=== PATIENT | female | born 1990 | race American Indian/Alaskan Native ===

== ENCOUNTER 2021-09-19 17:56 | Emergency (ER) | payer OTHER, MEDICAID, SELFPAY ==
[2021-09-19 18:08] VITALS: BP 150/90; PULSE 71; RESP 16; TEMP 36.4; O2SAT 97; BMI 35.2
--- NOTE | 2021-09-19 19:19 | ED_ITS ---
HPI - Headache <Nupur Levin PA-C - Last Filed: 09/19/21 20:35> General Chief Complaint: Headache Stated Complaint: Migraine/Vomiting Time Seen by Provider: 09/19/21 19:06 History of Present Illness HPI Narrative: 31-year-old female with past medical history migraines presents to the ED with 1 day of migraine. Patient states the headache started upon awakening, is pulsatile in nature and sharp. Patient also complains of nausea and vomiting, photophobia. Patient describes the headache that started of mild and worsened over time today. Patient denies visual disturbances, fever, chills, chest pain, shortness of breath, abdominal pain, dysuria, gait problems, lightheadedness, dizziness, syncope. Patient states she did not take any medications for her he adache today. Patient is not on a migraine regimen despite having migraine several days a month. Patient states she has been having trouble establishing with a PCP with their frequent moves, they moved recently to [place]. Related Data Allergies Allergy/AdvReac Type Severity Reaction Status Date / Time No Known Drug Allergies Allergy Verified 09/19/21 19:28 Review of Systems <Nupur Levin PA-C - Last Filed: 09/19/21 20:35> Review of Systems ROS Unobtainable: All systems reviewed & are unremarkable except as noted in HPI and below Constitutional Constitutional: Denies chills, Denies fatigue, Denies fever(s), Denies frequent falls, Reports headache(s), Denies lethargy and Denies weakness Eyes Eyes: Denies change in vision, Denies eye discharge, Denies irritation, Denies loss of vision and Reports photophobia ENT Ears, Nose, Mouth, and Throat: Denies change in voice, Denies dizziness, Reports headache(s), Denies neck pain, Denies sore throat and Denies throat swelling Cardiovascular Cardiovascular: Denies chest pain, Denies irregular heart rhythm, Denies lightheadedness, Denies palpitations, Denies dyspnea, Denies dyspnea on exertion and Denies orthopnea Respiratory Respiratory: Denies cough, Denies dyspnea, Denies dyspnea on exertion and Denies wheezing Gastrointestinal Gastrointestinal: Denies abdominal pain, Denies change in bowel habits, Denies diarrhea, Reports nausea and Reports vomiting Genitourinary Genitourinary: Denies hematuria, Denies flank pain, Denies urinary incontinence and Denies urinary urgency Musculoskeletal Musculoskeletal: Denies back pain, Denies muscle weakness, Denies neck pain, Den ies numbness and Denies tingling Integumentary/Breasts Skin/Breast: Denies pruritus, Denies erythema, Denies rash and Denies wounds Neurologic Neurologic: Denies behavioral changes, Denies confusion, Denies dizziness, Denies frequent falls, Reports headache(s), Denies loss of vision, Denies numbness, Denies tingling and Denies weakness Psychiatric Psychiatric: Denies anxiety, Denies behavioral changes, Denies confusion, Denies depression, Denies homicidal ideation and Denies suicidal ideation Endocrine Endocrine: Denies fatigue, Denies flushing and Denies palpitations Hematologic/Lymphatic Hematologic/Lymphatic: Denies easy bruising Allergic/Immunologic Allergic/Immunologic: Denies urticaria, Denies throat swelling and Denies wheezing Patient History <Nupur Levin PA-C - Last Filed: 09/19/21 20:35> Social History Smoking Status: Never smoker Smoking Status: Never smoker alcohol intake frequency: holidays/special occasions only Substance Use Type: does not use Exam <Nupur Levin PA-C - Last Filed: 09/19/21 20:35> Narrative Exam Narrative: Const General:?cooperative, healthy appearing and comfortable [facility] Head:?normal to inspection Ears:?hearing grossly normal bilaterally Nose:?external nose normal Face and sinus:?normal facial exam and sinuses nontender Mouth:?oral mucosae normal Throat:?posterior oropharynx normal Eyes General:?appearance normal, both eyes and all related structures Neck Neck:?normal visual inspection and no lymphadenopathy noted Resp Effort & Inspection:?normal respiratory effort Auscultation:?clear to auscultation bilaterally Cardio Rate:?regular rate Rhythm:?regular rhythm Neuro General:?patient alert, patient awake and patient oriented x3; PERRLA, CN 1 through 12 intact bilaterally. Gait normal. Negative pronator drift. Negative [id number]. Negative rapid alternating movements. Patient is neurologically intact. Initial Vital Signs Initial Vital Signs: Vital Signs Temperature 97.6 F 09/19/21 18:08 Pulse Rate 71 09/19/21 18:08 Respiratory Rate 16 09/19/21 18:08 Blood Pressure 150/90 H 09/19/21 18:08 Pulse Oximetry 97 09/19/21 18:08 <Gracia Horan MD - Last Filed: 09/20/21 06:26> Initial Vital Signs Initial Vital Signs: Vital Signs Temperature 97.6 F 09/19/21 18:08 Pulse Rate 71 09/19/21 18:08 Respiratory Rate 16 09/19/21 18:08 Blood Pressure 150/90 H 09/19/21 18:08 Pulse Oximetry 97 09/19/21 18:08 Course <Nupur Levin PA-C - Last Filed: 09/19/21 20:35> Orders Ordered: Discontinued Medications Acetaminophen (Acetaminophen 325 Mg Tablet) 975 mg PO NOW ONE Stop: 09/19/21 19:16 Last Admin: 09/19/21 19:39 Dose: 975 mg Documented by: LAZARO Dexamethasone (Dexamethasone 10 Mg/Ml Vial) 10 mg IV NOW ONE Stop: 09/19/21 19:19 Last Admin: 09/19/21 19:30 Dose: 10 mg Documented by: BERNARD Diphenhydramine HCl (Diphenhydramine 50 Mg/Ml Vial) 50 mg IV NOW ONE Stop: 09/19/21 19:16 Last Admin: 09/19/21 19:30 Dose: 50 mg Documented by: BERNARD Sodium Chloride (Normal Saline 0.9%) 1,000 mls @ 1,000 mls/hr IV BOLUS ONE Stop: 09/19/21 20:13 Last Infusion: 09/19/21 21:16 Dose: 0 mls/hr Documented by: Admin: 09/19/21 19:29 Dose: 1,000 mls/hr Documented by: BERNARD Ketorolac Tromethamine (Ketorolac 30 Mg/Ml Vial) 15 mg IV NOW ONE Stop: 09/19/21 19:15 Last Admin: 09/19/21 19:29 Dose: 15 mg Documented by: BERNARD Metoclopramide HCl (Metoclopramide 10 Mg/2 Ml Inj) 10 mg IV NOW ONE Stop: 09/19/21 19:15 Last Admin: 09/19/21 19:30 Dose: 10 mg Documented by: BERNARD Ondansetron HCl (Ondansetron 4 Mg/2 Ml Inj) 4 mg IV NOW ONE Stop: 09/19/21 19:35 Last Admin: 09/19/21 19:40 Dose: 4 mg Documented by: LAZARO Vital Signs Vital signs: Vital Signs - 8 hr 09/19/21 18:08 Temperature 97.6 F Pulse Rate 71 Respiratory Rate 16 Blood Pressure 150/90 H Pulse Oximetry 97 <Gracia Horan MD - Last Filed: 09/20/21 06:26> Orders Ordered: Discontinued Medications Acetaminophen (Acetaminophen 325 Mg Tablet) 975 mg PO NOW ONE Stop: 09/19/21 19:16 Last Admin: 09/19/21 19:39 Dose: 975 mg Documented by: LAZARO Dexamethasone (Dexamethasone 10 Mg/Ml Vial) 10 mg IV NOW ONE Stop: 09/19/21 19:19 Last Admin: 09/19/21 19:30 Dose: 10 mg Documented by: BERNARD Diphenhydramine HCl (Diphenhydramine 50 Mg/Ml Vial) 50 mg IV NOW ONE Stop: 09/19/21 19:16 Last Admin: 09/19/21 19:30 Dose: 50 mg Documented by: BERNARD Sodium Chloride (Normal Saline 0.9%) 1,000 mls @ 1,000 mls/hr IV BOLUS ONE Stop: 09/19/21 20:13 Last Infusion: 09/19/21 21:16 Dose: 0 mls/hr Documented by: Admin: 09/19/21 19:29 Dose: 1,000 mls/hr Documented by: BERNARD Ketorolac Tromethamine (Ketorolac 30 Mg/Ml Vial) 15 mg IV NOW ONE Stop: 09/19/21 19:15 Last Admin: 09/19/21 19:29 Dose: 15 mg Documented by: BERNARD Metoclopramide HCl (Metoclopramide 10 Mg/2 Ml Inj) 10 mg IV NOW ONE Stop: 09/19/21 19:15 Last Admin: 09/19/21 19:30 Dose: 10 mg Documented by: BERNARD Ondansetron HCl (Ondansetron 4 Mg/2 Ml Inj) 4 mg IV NOW ONE Stop: 09/19/21 19:35 Last Admin: 09/19/21 19:40 Dose: 4 mg Documented by: LAZARO Vital Signs Vital signs: Vital Signs - 8 hr 09/19/21 18:08 Temperature 97.6 F Pulse Rate 71 Respiratory Rate 16 Blood Pressure 150/90 H Pulse Oximetry 97 MDM - Headache <Nupur Levin PA-C - Last Filed: 09/19/21 20:35> Lab Data Lab results narrative: Labs within normal limits Result diagrams: 09/19/21 18:49 09/19/21 18:49 Labs: Lab Results 09/19/21 09/19/21 Range/Units 18:49 18:49 WBC 12.5 H (4.5-11.0) X10^3/uL RBC 4.67 (4.0-5.2) X10^6/uL Hgb 11.4 L (12.0-16.0) g/dL Hct 34.8 L (36-46) % MCV 74.6 L (80-100) fL MCH 24.3 L (26-34) PG MCHC 32.6 (30-36) % RDW 15.5 H (11.6-14.8) % Plt Count 255 (150-400) X10^3/uL Neut % (Auto) 88.4 H (50-75) % Lymph % (Auto) 7.0 L (25-40) % [place] % (Auto) 3.8 (3-14) % Eos % (Auto) 0.6 L (2-4) % Baso % (Auto) 0.2 (0-2) % Neut # (Auto) 08904 H (6212-7984) /uL Lymph # (Auto) 900 L (7934-4506) /uL [place] # (Auto) 500 (0-900) /uL Eos # (Auto) 100 (0-450) /uL Baso # (Auto) 0 (0-100) /uL Sodium 139 (137-145) mmol/L Potassium 4.1 (3.4-5.1) mmol/L Chloride 105 (98-107) mmol/L Carbon Dioxide 21 L (22-32) mmol/L BUN 10 (7-17) mg/dL Creatinine 0.56 (0.52-1.04) mg/dL Estimated GFR > 60 (>60) mL/min BUN/Creatinine Ratio 17.9 (6-22) Glucose 108 H (70-100) mg/dL Calcium 8.9 (8.4-10.2) mg/dL MDM Narrative Medical decision making narrative: 31-year-old female with past medical history migraines presents to the ED with 1 day of migraine. Given no red flag symptoms, symptoms likely due to a primary headache. Will treat with Toradol, Tylenol, Benadryl, IV fluids, Reglan, dexamethasone. Will re-evaluate. Patient has 10/10 pain came down to 1/10 pain with the medications. Recommend Tylenol, ibuprofen at home for headache. ED return precautions discussed with patient. Patient verbalized understanding. <Gracia Horan MD - Last Filed: 09/20/21 06:26> Lab Data Labs: Lab Results 09/19/21 09/19/21 Range/Units 18:49 18:49 WBC 12.5 H (4.5-11.0) X10^3/uL RBC 4.67 (4.0-5.2) X10^6/uL Hgb 11.4 L (12.0-16.0) g/dL Hct 34.8 L (36-46) % MCV 74.6 L (80-100) fL MCH 24.3 L (26-34) PG MCHC 32.6 (30-36) % RDW 15.5 H (11.6-14.8) % Plt Count 255 (150-400) X10^3/uL Neut % (Auto) 88.4 H (50-75) % Lymph % (Auto) 7.0 L (25-40) % [place] % (Auto) 3.8 (3-14) % Eos % (Auto) 0.6 L (2-4) % Baso % (Auto) 0.2 (0-2) % Neut # (Auto) 57171 H (2607-9677) /uL Lymph # (Auto) 900 L (4507-5079) /uL [place] # (Auto) 500 (0-900) /uL Eos # (Auto) 100 (0-450) /uL Baso # (Auto) 0 (0-100) /uL Sodium 139 (137-145) mmol/L Potassium 4.1 (3.4-5.1) mmol/L Chloride 105 (98-107) mmol/L Carbon Dioxide 21 L (22-32) mmol/L BUN 10 (7-17) mg/dL Creatinine 0.56 (0.52-1.04) mg/dL Estimated GFR > 60 (>60) mL/min BUN/Creatinine Ratio 17.9 (6-22) Glucose 108 H (70-100) mg/dL Calcium 8.9 (8.4-10.2) mg/dL Discharge Plan Departure Patient Disposition: Home Clinical Impression: Headache Instructions: DI for Headache Activity Restrictions/Additional Instructions: You were evaluated in the ED today for a headache. Your symptoms responded well to Tylenol, Toradol, Benadryl, Reglan, dexamethasone, IV fluids. You may continue to take Tylenol and ibuprofen at home for your headache. Please follow-up with the PCP for further evaluation and treatment for your migraines. Return to the ED if your headache returns and is unresponsive to ibuprofen, Tylenol, you have uncontrollable nausea, vomiting. <Gracia Horan MD - Last Filed: 09/20/21 06:26> Cosign ED Attending Coselvaature Attestation: I was immediately available in the department for consultation throughout this patient's visit. I agree with documentation as above. Gracia Horan MD
[2021-09-19 19:22] LABS: Add Manual Diff / Slide Review NO; Basophils Absolute Auto 0 /uL (0-100); Basophils Percent Auto 0.2 % (0-2); Eosinophils Absolute Auto 100 /uL (0-450); Eosinophils Percent Auto 0.6 % (2-4); Hematocrit 34.8 % (36-46); Hemoglobin 11.4 g/dL (12.0-16.0); Lymphocytes Absolute Auto 900 /uL (1100-4500); Mean Corpuscular HGB Conc 32.6 % (30-36); Mean Corpuscular Hemoglobin 24.3 PG (26-34); Mean Corpuscular Volume 74.6 fL (80-100); Monocytes Absolute Auto 500 /uL (0-900); Monocytes Percent Auto 3.8 % (3-14); Neutrophils Absolute Auto 11100 /uL (1500-7000); Neutrophils Percent Auto 88.4 % (50-75); Platelet Count 255 X10^3/uL (150-400); Red Blood Cell Count 4.67 X10^6/uL (4.0-5.2); Red Cell Distribution Width 15.5 % (11.6-14.8); White Blood Cell Count 12.5 X10^3/uL (4.5-11.0)
[2021-09-19 19:28] LABS: BUN Creatinine Ratio 17.9 (6-22); Blood Urea Nitrogen 10 mg/dL (7-17); Calcium 8.9 mg/dL (8.4-10.2); Carbon Dioxide 21 mmol/L (22-32); Chloride 105 mmol/L (98-107); Estimated Glomerular Filt Rate > 60 mL/min (>60); Glucose 108 mg/dL (70-100); HEMOLYSIS < 15 (0-50); Potassium 4.1 mmol/L (3.4-5.1); Sodium 139 mmol/L (137-145)
[2021-09-19] MEDS: KETOROLAC 30 MG/ML VIAL 15 MG IV (19:29)
[2021-09-19] MEDS: SODIUM CHLORIDE 0.9% 1,000 ML 1000 ML IV (19:29)
[2021-09-19] MEDS: diphenhydrAMINE 50 MG/ML VIAL IV (19:30)
[2021-09-19] MEDS: METOCLOPRAMIDE 10 MG/2 ML INJ IV (19:30)
[2021-09-19] MEDS: DEXAMETHASONE 10 MG/ML VIAL IV (19:30)
[2021-09-19] MEDS: ACETAMINOPHEN 325 MG TABLET 975 MG PO (19:39)
[2021-09-19] MEDS: ONDANSETRON 4 MG/2 ML INJ IV (19:40)
[2021-09-19 20:33] VITALS: BP 117/67; PULSE 60; RESP 18; O2SAT 100
== END 2021-09-19 21:17 | disposition home or self-care (01) ==
PROVIDERS: Emergency Provider Student in an Organized Health Care Education/Training Program
DX: R51.9 Headache, unspecified (principal); R11.2 Nausea with vomiting, unspecified
CPT/HCPCS: 36415; 80048; 85025; 96361; 96374; 96375; 99284; J1100; J1200; J1885; J2405; J2765

== ENCOUNTER → 2022-08-09 16:15 | Outpatient (CLI) | payer OTHER, MEDICAID, SELFPAY ==
[2022-08-09 16:50] LABS: Add Manual Diff / Slide Review NO; Basophils Absolute Auto 0 /uL (0-100); Basophils Percent Auto 0.2 % (0-2); Eosinophils Absolute Auto 100 /uL (0-450); Eosinophils Percent Auto 0.5 % (2-4); Hematocrit 34.6 % (36-46); Hemoglobin 11.5 g/dL (12.0-16.0); Lymphocytes Absolute Auto 500 /uL (1100-4500); Mean Corpuscular HGB Conc 33.1 % (30-36); Mean Corpuscular Hemoglobin 25.3 PG (26-34); Mean Corpuscular Volume 76.4 fL (80-100); Monocytes Absolute Auto 600 /uL (0-900); Monocytes Percent Auto 6.1 % (3-14); Neutrophils Absolute Auto 9300 /uL (1500-7000); Neutrophils Percent Auto 88.2 % (50-75); Platelet Count 296 X10^3/uL (150-400); Red Blood Cell Count 4.53 X10^6/uL (4.0-5.2); Red Cell Distribution Width 15.2 % (11.6-14.8); White Blood Cell Count 10.6 X10^3/uL (4.5-11.0)
[2022-08-09 17:28] LABS: Alanine Aminotransferase 26 IU/L (<35); Albumin 4.3 g/dL (3.5-5.0); Albumin Globulin Ratio 1.4 (1.0-2.8); Alkaline Phosphatase 75 U/L (38-126); Aspartate Aminotransferase 19 IU/L (14-36); BUN Creatinine Ratio 16.7 (6-22); Bilirubin Total 0.5 mg/dL (0.2-1.3); Blood Urea Nitrogen 10 mg/dL (7-17); Calcium 9.1 mg/dL (8.4-10.2); Carbon Dioxide 24 mmol/L (22-32); Chloride 104 mmol/L (98-107); Cholesterol 142 mg/dL (140-199); Estimated Glomerular Filt Rate > 60 mL/min (>60); Globulin 3.1 g/dL (1.7-4.1); Glucose 95 mg/dL (70-100); HDL Cholesterol 52 mg/dL (40-60); HEMOLYSIS < 15 (0-50); LDL Cholesterol Calculated 68 mg/dL (<100); Sodium 137 mmol/L (137-145); Total Protein 7.4 g/dL (6.3-8.2); Triglycerides 111 mg/dL (35-150)
[2022-08-09 17:59] LABS: TSH w/ Reflex to FT4 1.05 uIU/mL (0.47-4.68)
[2022-08-11 06:01] LABS: x Labcorp Estim. Avg Glu (eAG) 114 mg/dL (.); x Labcorp Hemoglobin A1c 5.6 % (4.8-5.6)
== END ==
PROVIDERS: PCP Family Medicine; Referring Provider Family Medicine; Visit Provider Family Medicine
DX: F32.A Depression, unspecified (principal); G44.209 Tension-type headache, unspecified, not intractable; G43.909 Migraine, unspecified, not intractable, without status migrainosus; N92.6 Irregular menstruation, unspecified; R55 Syncope and collapse
CPT/HCPCS: 36415; 80053; 80061; 83036; 84443; 85025

== ENCOUNTER → 2022-09-06 10:39 | Outpatient (CLI) | payer OTHER, MEDICAID, SELFPAY ==
[2022-09-06 11:35] LABS: HEMOLYSIS < 15 (0-50); Iron 34 ug/dL (37-170)
[2022-09-06 11:46] LABS: Percent Iron Saturation 9 % (15-50); Total Iron Binding Capacity 392 ug/dL (265-497); Transferrin 289 mg/dL (206-381)
[2022-09-06 12:10] LABS: Ferritin 6 ng/mL (6-137)
[2022-09-11 13:09] LABS: Fecal Immunochemical Test Negative (Negative)
== END ==
PROVIDERS: PCP Family Medicine; Referring Provider Family Medicine; Visit Provider Family Medicine
DX: D50.9 Iron deficiency anemia, unspecified (principal); N92.1 Excessive and frequent menstruation with irregular cycle
CPT/HCPCS: 36415; 82274; 82728; 83540; 83550

== ENCOUNTER → 2022-09-19 15:56 | Outpatient (CLI) | payer OTHER, MEDICAID, SELFPAY ==
--- NOTE | 2022-09-19 15:57 | DI.US.S_ITS ---
PROCEDURE: US PELVIC COMPLETE INDICATIONS: PAINFUL, HEAVY, IRREGULAR MENSTRUATION TECHNIQUE: Real-time scanning was performed of the pelvic organs, with image documentation. Additional endovaginal scanning was necessary due to incomplete visualization of the adnexal and endometrial structures by transabdominal scanning. COMPARISON: None. FINDINGS: Uterus: Uterus is anteverted and normal in size at 9.2 x 5.7 x 4.9 cm. The myometrium is heterogeneous but without a discrete mass. The endometrium measures 10 mm combined thickness. Normal vascularity in the uterus and endometrium. Ovaries: The right ovary measures 4.2 x 2.2 x 2.6 cm, with a calculated ovarian volume of 12.4 cc. The left ovary measures 3.5 x 2.5 x 2.3 cm, with a calculated ovarian volume of 10.8 cc. The ovaries have a normal sonographic appearance. There are several follicles in each ovary and a few follicles in the right ovary contained daughter cysts. There is a dominant right ovarian follicle. A few daughter cysts and numerous follicles are present on the left ovary. No adnexal masses are seen. Other: No pathologic free abdominal or pelvic fluid. IMPRESSION: 1. Heterogeneous uterus raising the possibility of adenomyosis. Further evaluation with pelvic MRI may be diagnostic. 2. Borderline enlarged ovaries with numerous follicles. This can be physiologic, however in the appropriate clinical setting, polycystic ovarian syndrome can have this appearance. Correlate with hyperandrogenism. We strive to produce accurate, complete, and clear reports of imaging services. To assist us in improving patient care, this report was composed using standard report templates and voice recognition software. Therefore, it may contain abnormal punctuation, insertions and/or omissions. Occasional wrong-word or sound-alike substitutions may occur. Though we review the report and make efforts to correct it, we do recommend that the report be read carefully in proper context to recognize any text inaccuracies. Dictated by: Evelia Batres M.D. on 09/19/2022 at 16:55 Approved by: Evelia Batres M.D. on 09/19/2022 at 17:00
== END ==
PROVIDERS: PCP Family Medicine; Referring Provider Family Medicine; Visit Provider Family Medicine
DX: N92.0 Excessive and frequent menstruation with regular cycle (principal); N92.6 Irregular menstruation, unspecified; Q50.39 Other congenital malformation of ovary
CPT/HCPCS: 76830; 76856

== ENCOUNTER 2022-10-08 08:22 | Emergency (ER) | payer OTHER, MEDICAID, SELFPAY ==
--- NOTE | 2022-10-08 08:27 | ED.PREGNANCY ---
HPI - General Chief complaint: Vaginal Bleeding Stated complaint: vaginal bleeding 5wks Time Seen by Provider: 10/08/22 08:23 Source: patient, RN notes reviewed and old records reviewed Mode of arrival: Ambulatory Limitations: no limitations History of Present Illness HPI Narrative: This is a 32-year-old with history of PCOS and endometriosis whose last menstrual period was September 03, 2022 approximately 5 weeks by dates with no care thus far who presents with complaint of vaginal bleeding. Patient states some very mild cramping that started today. She states she wiped this morning noticed some blood and then had some additional darker blood when she wiped again. Patient denies fevers or chills, no chest pain or shortness of breath. She is had maybe some very mild nausea but has not really appreciated much. No vomiting. No diarrhea constipation, no urinary symptoms. No back or flank pain. Patient states they have been trying to get she is been taking some oral vitamins, she did have a dental extraction and is on amoxicillin. She states no other daily medications. Has had a prior appendectomy, cholecystectomy and deviated septum repair. Prior deliveries were vaginal. Former smoker no active tobacco use, no recent alcohol, no illicit. Dr. Newsome is her primary care. Patient is accompanied by her [id number]. Related Data Previous Rx's Medication Instructions Recorded iron sucrose 50 mg iron/2.5 mL 300 mg (15 mL) IV .COMPLEX 30 days 09/08/22 intravenous solution (Venofer) #15 mL ondansetron 4 mg disintegrating 4 mg PO DAILY #30 tabs 09/08/22 tablet sumatriptan succinate 100 mg See Rx Instructions PO .COMPLEX 09/08/22 tablet (Imitrex) #10 tabs Allergies Allergy/AdvReac Type Severity Reaction Status Date / Time codeine AdvReac Unknown Verified 09/08/22 15:23 narcotics AdvReac Unknown Uncoded 09/08/22 15:23 Review of Systems Review of Systems ROS Unobtainable: All systems reviewed & are unremarkable except as noted in HPI and below Exam Narrative Exam Narrative: GENERAL: Alert and oriented x three, female in mild distress. Patient is little bit tearful and anxious. HEENT: Head normocephalic, atraumatic, EOMI, pupils reactive, face symmetric, moist mucous membranes NECK: Supple, full range of motion CARDIOVASCULAR: Regular rate and rhythm without murmurs, rubs or gallops. RESPIRATORY: Breath sounds equal bilaterally, no wheezes rales or rhonchi. ABDOMEN: Soft, nontender. Normoactive bowel sounds all 4 quadrants. No guarding or rebound, rigidity, no mass : No CVA tenderness EXTREMITIES: Normal range of motion, no clubbing or edema. Neurovascularly intact NEUROLOGICAL: Cranial nerves II through XII grossly intact. Moving all extremities SKIN: Warm, dry, no petechiae, no rashes or lesions. Initial Vital Signs Initial Vital Signs: Vital Signs Pulse Rate 64 10/08/22 08:31 Pulse Oximetry 98 10/08/22 08:31 Course Orders Ordered: ED Orders 10/08/22 08:35 US pelvic complete Stat 10/08/22 08:40 ABO RH Type Stat CBC Auto Diff [Complete Blood Count AUTO DIFF] Stat CMP [Comprehensive Metabolic Panel] Stat HCG Quantitative /Beta subunit Stat 10/08/22 09:15 Urine Microscopic Stat Vital Signs Vital signs: Vital Signs - 8 hr 10/08/22 08:32 10/08/22 08:31 10/08/22 09:00 Temperature 97.8 F Pulse Rate 62 64 65 Respiratory Rate 16 Blood Pressure 148/94 H Pulse Oximetry 99 98 99 Oxygen Delivery Method Room Air 10/08/22 11:02 10/08/22 11:03 10/08/22 11:03 Temperature Pulse Rate 66 66 65 Respiratory Rate 18 Blood Pressure 160/88 H Pulse Oximetry 98 97 98 Oxygen Delivery Method Room Air MDM - OB/Uterine Contractions Lab Data 10/08/22 08:40 10/08/22 08:40 Labs: Lab Results 10/08/22 10/08/22 10/08/22 Range/Units 08:40 08:40 08:40 WBC 5.1 (4.5-11.0) X10^3/uL RBC 4.64 (4.0-5.2) X10^6/uL Hgb 11.8 L (12.0-16.0) g/dL Hct 35.4 L (36-46) % MCV 76.3 L (80-100) fL MCH 25.4 L (26-34) PG MCHC 33.3 (30-36) % RDW 16.0 H (11.6-14.8) % Plt Count 262 (150-400) X10^3/uL Neut % (Auto) 60.7 (50-75) % Lymph % (Auto) 27.5 (25-40) % [place] % (Auto) 9.0 (3-14) % Eos % (Auto) 2.2 (2-4) % Baso % (Auto) 0.6 (0-2) % Neut # (Auto) 3100 (6464-7431) /uL Lymph # (Auto) 1400 (3897-7784) /uL [place] # (Auto) 500 (0-900) /uL Eos # (Auto) 100 (0-450) /uL Baso # (Auto) 0 (0-100) /uL Sodium 139 (137-145) mmol/L Potassium 3.9 (3.4-5.1) mmol/L Chloride 108 H (98-107) mmol/L Carbon Dioxide 25 (22-32) mmol/L BUN 8 (7-17) mg/dL Creatinine 0.53 (0.52-1.04) mg/dL Estimated GFR > 60 (>60) mL/min BUN/Creatinine Ratio 15.1 (6-22) Glucose 100 (70-100) mg/dL Calcium 8.9 (8.4-10.2) mg/dL Total Bilirubin 0.3 (0.2-1.3) mg/dL AST 18 (14-36) IU/L ALT 22 (<35) IU/L Alkaline Phosphatase 64 (38-126) U/L Total Protein 7.6 (6.3-8.2) g/dL Albumin 4.2 (3.5-5.0) g/dL Globulin 3.4 (1.7-4.1) g/dL Albumin/Globulin Ratio 1.2 (1.0-2.8) HCG, Quant < 2.4 mIU/mL Urine RBC (0-5/HPF) Urine WBC (0-5/HPF) Ur Squamous Epith Cells (0-5/HPF) Urine Bacteria (None) Ur Culture Indicated? Blood Type A Positive 10/08/22 Range/Units 09:15 WBC (4.5-11.0) X10^3/uL RBC (4.0-5.2) X10^6/uL Hgb (12.0-16.0) g/dL Hct (36-46) % MCV (80-100) fL MCH (26-34) PG MCHC (30-36) % RDW (11.6-14.8) % Plt Count (150-400) X10^3/uL Neut % (Auto) (50-75) % Lymph % (Auto) (25-40) % [place] % (Auto) (3-14) % Eos % (Auto) (2-4) % Baso % (Auto) (0-2) % Neut # (Auto) (4421-6818) /uL Lymph # (Auto) (3369-4128) /uL [place] # (Auto) (0-900) /uL Eos # (Auto) (0-450) /uL Baso # (Auto) (0-100) /uL Sodium (137-145) mmol/L Potassium (3.4-5.1) mmol/L Chloride (98-107) mmol/L Carbon Dioxide (22-32) mmol/L BUN (7-17) mg/dL Creatinine (0.52-1.04) mg/dL Estimated GFR (>60) mL/min BUN/Creatinine Ratio (6-22) Glucose (70-100) mg/dL Calcium (8.4-10.2) mg/dL Total Bilirubin (0.2-1.3) mg/dL AST (14-36) IU/L ALT (<35) IU/L Alkaline Phosphatase (38-126) U/L Total Protein (6.3-8.2) g/dL Albumin (3.5-5.0) g/dL Globulin (1.7-4.1) g/dL Albumin/Globulin Ratio (1.0-2.8) HCG, Quant mIU/mL Urine RBC >100/hpf H (0-5/HPF) Urine WBC 1-5/hpf (0-5/HPF) Ur Squamous Epith Cells 1-5 /hpf (0-5/HPF) Urine Bacteria None seen (None) Ur Culture Indicated? Cult not indicated Blood Type Point of Care Testing Test Results Negative Urine Dip Bedside Urine Glucose Negative Bedside Urine Bilirubin - Negative Bedside Urine Ketone - Negative Urine Specific Girdler 1.025 Bedside Urine Occult Blood +++ Bedside Urine pH 6.0 Bedside Urine Protein - Negative Bedside Urine Urobilinogen - Negative Bedside Urine Nitrite - Negative Bedside Urine Leukocytes - Negative Esterase Imaging Data US - OB: Radiologist's Impression: Close Pelvis Ultrasound (Signed) Donte Marshall - 10/08/22 Launch?Image [address] [address] Ultrasound Report Signed Patient: Faiht Ploanco MR#: [id number] : 1990 Acct:[id number] Age/Sex: 32 / F Date of Service: 10/08/22 Loc: ED Accession Number: [id number] ?? Procedure: US pelvic complete Ordering Provider: Latha Shaw D.O. PROCEDURE:? US PELVIC COMPLETE ? INDICATIONS:? POSITIVE HOME ; BLEEDING ? TECHNIQUE:? Real-time scanning was performed of the pelvic organs, with image documentation.? Additional endovaginal scanning was necessary due to incomplete visualization of the adnexal and endometrial structures by transabdominal scanning.? ? COMPARISON:? [facility], , US PELVIC COMPLETE, 09/19/2022, 16:03. ? FINDINGS:? ?? Uterus:? Uterus is anteverted and normal in size at 9.6 x 5.4 x 6.4 cm. The myometrium is homogeneous. ? The endometrium measures 7.6 mm combined thickness.? No evidence of intrauterine ? Ovaries:? The right ovary measures 2.1 x 2.9 x 2.5 cm, with a calculated ovarian volume of 7.7 cc. The left ovary measures 3.1 x 2.8 x 1.9 cm, with a calculated ovarian volume of 8.8 cc. The ovaries have a normal sonographic appearance. Less than 12 follicles can be seen in each ovary.? No adnexal masses are seen. ? Other:? No pathologic free abdominal or pelvic fluid. ? ? IMPRESSION:? ? Normal ultrasound of the pelvis without evidence of intrauterine .? Differential possibilities include normal early , missed , and nonvisualized ectopic . ? Approved by: Donte Marshall M.D. on 10/08/2022 at 9:23? MDM Narrative Medical decision making narrative: 32-year-old female with positive test at home with vaginal bleeding mild cramping who is not had any for care thus far proximally 5 weeks by dates. Workup for evaluation CBC, CMP, hCG, Rh and OB ultrasound obtained. Patient's hCG is negative as well as point of care urine here. Patient's labs show microcytic anemia for the past year. Stable. Patient's chloride is 108 otherwise normal labs renal function and LFTs. HCG is less than 2.4 and urine shows blood consistent with recent vaginal bleeding no other signs of infection. Ob ultrasound is negative. Suspect patient either had a very early miscarriage and or false negative at home. Reviewed findings with patient. Plan to have her follow up with primary care to continue treatment she has goal of obtaining . Discussed findings with patient, she has follow up with Dr. Newsome as they are optimizing her medical health with goal for and discussed might be helpful for follow up with Ob if it has been more than a year of attempts to get . Discharge Plan Departure Patient Disposition: Home Clinical Impression: Vaginal bleeding Activity Restrictions/Additional Instructions: Your workup today is negative for . It is possible you have had a very early miscarriage or you may have had a false negative test at home. Your labs show a mild anemia which has been stable, I would recommend talking with your physician about taking iron if you are not receiving some version of iron. Please return for severe abdominal back or flank pain, passing out, persistent vomiting, lightheadedness, black or bloody stools or other new or concerning changes. Prescriptions: No Action sumatriptan succinate [Imitrex] 100 mg tablet See Rx Instructions PO .COMPLEX Qty: 10 11RF Rx Instructions: take 1 tab at onset of headache; if no relief, may repeat 1 tab after at least 2 hrs; max = 2 tabs/24 hrs PO ondansetron 4 mg tablet,disintegrating 4 mg PO DAILY Qty: 30 11RF Venofer 50 mg iron/2.5 mL solution 300 mg IV .COMPLEX 30 Days Qty: 15 2RF Rx Instructions: 300 mg intravenously weekly x 3 wks; administer over 2-5 mins Referrals: Mona Calhoun MD [Physician] - Manuel Newsome DO [Primary Care Provider] - Stand Alone Forms: Patient Portal/API
[2022-10-08 08:31] VITALS: PULSE 64; O2SAT 98
[2022-10-08 08:32] VITALS: BP 148/94; PULSE 62; RESP 16; TEMP 36.6; O2SAT 99; BMI 37.8
--- NOTE | 2022-10-08 08:35 | DI.US.S_ITS ---
PROCEDURE: US PELVIC COMPLETE INDICATIONS: POSITIVE HOME ; BLEEDING TECHNIQUE: Real-time scanning was performed of the pelvic organs, with image documentation. Additional endovaginal scanning was necessary due to incomplete visualization of the adnexal and endometrial structures by transabdominal scanning. COMPARISON: [facility], US, US PELVIC COMPLETE, 09/19/2022, 16:03. FINDINGS: Uterus: Uterus is anteverted and normal in size at 9.6 x 5.4 x 6.4 cm. The myometrium is homogeneous. The endometrium measures 7.6 mm combined thickness. No evidence of intrauterine Ovaries: The right ovary measures 2.1 x 2.9 x 2.5 cm, with a calculated ovarian volume of 7.7 cc. The left ovary measures 3.1 x 2.8 x 1.9 cm, with a calculated ovarian volume of 8.8 cc. The ovaries have a normal sonographic appearance. Less than 12 follicles can be seen in each ovary. No adnexal masses are seen. Other: No pathologic free abdominal or pelvic fluid. IMPRESSION: Normal ultrasound of the pelvis without evidence of intrauterine . Differential possibilities include normal early , missed , and nonvisualized ectopic . Approved by: Donte Marshall M.D. on 10/08/2022 at 9:23
--- NOTE | 2022-10-08 08:50 | PC.NURSE ---
pt reports she woke up and noticed she had dark red vaginal bleeding, she inserted a tampon and came straight to the ER. She has had the same tampon in for the duration of her bleeding, so amount of bleeding is unclear.
[2022-10-08 09:00] VITALS: PULSE 65; O2SAT 99
[2022-10-08 09:15] LABS: Add Manual Diff / Slide Review NO; Basophils Absolute Auto 0 /uL (0-100); Basophils Percent Auto 0.6 % (0-2); Eosinophils Absolute Auto 100 /uL (0-450); Eosinophils Percent Auto 2.2 % (2-4); Hematocrit 35.4 % (36-46); Hemoglobin 11.8 g/dL (12.0-16.0); Lymphocytes Absolute Auto 1400 /uL (1100-4500); Lymphocytes Percent Auto 27.5 % (25-40); Mean Corpuscular HGB Conc 33.3 % (30-36); Mean Corpuscular Hemoglobin 25.4 PG (26-34); Mean Corpuscular Volume 76.3 fL (80-100); Monocytes Absolute Auto 500 /uL (0-900); Neutrophils Absolute Auto 3100 /uL (1500-7000); Neutrophils Percent Auto 60.7 % (50-75); Platelet Count 262 X10^3/uL (150-400); Red Blood Cell Count 4.64 X10^6/uL (4.0-5.2); White Blood Cell Count 5.1 X10^3/uL (4.5-11.0)
[2022-10-08 09:22] LABS: Alanine Aminotransferase 22 IU/L (<35); Albumin 4.2 g/dL (3.5-5.0); Albumin Globulin Ratio 1.2 (1.0-2.8); Alkaline Phosphatase 64 U/L (38-126); Aspartate Aminotransferase 18 IU/L (14-36); BUN Creatinine Ratio 15.1 (6-22); Bilirubin Total 0.3 mg/dL (0.2-1.3); Blood Urea Nitrogen 8 mg/dL (7-17); Calcium 8.9 mg/dL (8.4-10.2); Carbon Dioxide 25 mmol/L (22-32); Chloride 108 mmol/L (98-107); Estimated Glomerular Filt Rate > 60 mL/min (>60); Globulin 3.4 g/dL (1.7-4.1); Glucose 100 mg/dL (70-100); HEMOLYSIS < 15 (0-50); Potassium 3.9 mmol/L (3.4-5.1); Sodium 139 mmol/L (137-145); Total Protein 7.6 g/dL (6.3-8.2)
[2022-10-08 09:38] LABS: HCG Quantitative /Beta subunit < 2.4 mIU/mL
[2022-10-08 09:53] LABS: Bacteria Urine None Seen; RBC Urine >100/HPF (0-5/HPF); WBC Urine 1-5/HPF (0-5/HPF)
[2022-10-08 09:54] LABS: Culture Indicated Urine Cult Not Indicated; Squamous Epithelial Cell Urine 1-5 /HPF (0-5/HPF)
[2022-10-08 11:02] VITALS: PULSE 66; O2SAT 98
[2022-10-08 11:03] VITALS: BP 160/88; PULSE 65; PULSE 66; RESP 18; O2SAT 97; O2SAT 98
== END 2022-10-08 11:11 | disposition home or self-care (01) ==
PROVIDERS: Emergency Provider Emergency Medicine; PCP Family Medicine
DX: O20.9 Hemorrhage in early pregnancy, unspecified (principal); Z3A.01 Less than 8 weeks gestation of pregnancy
CPT/HCPCS: 36415; 76830; 76856; 80053; 81003; 81015; 81025; 84702; 85025; 86900; 86901; 99284

== ENCOUNTER → 2022-11-16 11:10 | Outpatient (CLI) | payer OTHER, MEDICAID, SELFPAY ==
[2022-11-16 12:18] LABS: Add Manual Diff / Slide Review NO; Basophils Absolute Auto 0 /uL (0-100); Basophils Percent Auto 0.7 % (0-2); Eosinophils Absolute Auto 100 /uL (0-450); Hematocrit 33.7 % (36-46); Hemoglobin 11.1 g/dL (12.0-16.0); Lymphocytes Absolute Auto 1200 /uL (1100-4500); Lymphocytes Percent Auto 24.2 % (25-40); Mean Corpuscular Hemoglobin 25.2 PG (26-34); Mean Corpuscular Volume 76.5 fL (80-100); Monocytes Absolute Auto 400 /uL (0-900); Monocytes Percent Auto 8.3 % (3-14); Neutrophils Absolute Auto 3200 /uL (1500-7000); Neutrophils Percent Auto 64.8 % (50-75); Platelet Count 262 X10^3/uL (150-400); Red Cell Distribution Width 15.3 % (11.6-14.8); White Blood Cell Count 4.9 X10^3/uL (4.5-11.0)
[2022-11-16 12:31] LABS: HEMOLYSIS < 15 (0-50); Iron 77 ug/dL (37-170)
--- NOTE | 2022-11-16 12:40 | DI.MRI.S_ITS ---
PROCEDURE: MR ABDOMEN PELVIS WO CON COMPARISON: None. INDICATIONS: abd pain, r/o adenomyosis per ultrasound TECHNIQUE: Multiplanar, multi sequence MRI of the pelvis without administration of contrast. FINDINGS: The uterus is normal in size, measuring 4.5 x 8.6 x 5.8 cm. Endometrial stripe measures 0.4 cm. Junctional zone measures 10 mm, within normal limits. No punctate T2 hyperintense foci within the transition zone to suggest adenomyosis. Greater than 25 peripheral follicles per ovary. No solid ovarian mass. The right ovary measures 1.9 x 4.2 x 2.9 cm, volume of 12 mL. The left ovary measures 2.5 x 2.5 x 2.7 cm, volume 9 mL. No solid ovarian mass. Bladder are and bowel appear normal. No pelvic mass. Gallbladder is absent. Liver, spleen and kidneys are unremarkable. No pancreatic ductal dilation. No adrenal mass. No central or pelvic adenopathy. No retroperitoneal adenopathy. Normal vasculature. IMPRESSION: No evidence of adenomyosis. Polycystic ovaries. Dictated by: Claudy Harrington M.D. on 11/16/2022 at 15:00 Approved by: Claudy Harrington M.D. on 11/16/2022 at 15:05
[2022-11-16 15:29] LABS: Ferritin 7 ng/mL (6-137)
[2022-11-16 17:42] LABS: Percent Iron Saturation 19 % (15-50); Total Iron Binding Capacity 409 ug/dL (265-497); Transferrin 297 mg/dL (206-381)
[2022-11-17 06:33] LABS: x Labcorp Estim. Avg Glu (eAG) 105 mg/dL (.); x Labcorp Hemoglobin A1c 5.3 % (4.8-5.6)
== END ==
PROVIDERS: PCP Family Medicine; Referring Provider Family Medicine; Visit Provider Family Medicine
DX: N92.1 Excessive and frequent menstruation with irregular cycle (principal); E28.2 Polycystic ovarian syndrome; R71.8 Other abnormality of red blood cells; E66.9 Obesity, unspecified
CPT/HCPCS: 36415; 72195; 74181; 82728; 83036; 83540; 83550; 85025

== ENCOUNTER → 2023-01-11 09:30 | Oncology outpatient (ONC) | payer OTHER, MEDICAID, SELFPAY ==
[2022-12-13 11:46] VITALS: BP 132/82; PULSE 68; RESP 16; TEMP 36.6; O2SAT 100
--- NOTE | 2022-12-13 13:15 | PC.NURSE ---
RESCHEDULED IRON INFUSION After multiple attempts by two RN's to start an IV, Pt requested to reschedule appointment for tomorrow. Encouraged Pt to hydrate well prior to appointment. Pt voiced understanding.
[2022-12-14] MEDS: IRON SUCROSE 300 MG in SODIUM CHLORIDE 0.9% 250 ML 176.667 MG IV (11:56)
[2022-12-14 12:02] VITALS: BP 120/88; PULSE 63; RESP 16; TEMP 36.8; O2SAT 99
[2022-12-14 14:08] VITALS: BP 123/76; PULSE 66
[2022-12-21 09:28] VITALS: BP 119/74; PULSE 66; RESP 16; TEMP 36.7; O2SAT 98
[2022-12-21] MEDS: IRON SUCROSE 300 MG in SODIUM CHLORIDE 0.9% 250 ML 176 MG IV (09:55)
[2023-01-11 09:47] VITALS: BP 130/87; PULSE 71; RESP 18; TEMP 36.9; O2SAT 100
[2023-01-11] MEDS: IRON SUCROSE 300 MG in SODIUM CHLORIDE 0.9% 250 ML 176.667 MG IV (09:57)
[2023-01-11 12:11] VITALS: BP 135/86; PULSE 69; RESP 16; O2SAT 99
--- NOTE | 2023-01-11 12:12 | PC.NURSE ---
1200: patient complained that she has been feeling vertigosleepy, woozy and heavy and things spinning clockwise in a modoc for about a half hour. VSS. She has had vertigo before which feels more head over heels direction. She did have nauseau and headache after the last iron infusion. Infusion stopped, increased NS rate to 100. This nurse spoke with Dr. Prasad re patient's symptoms. Per Dr. Prasad remainder of iron (30-50 mls) given at a slower rate (100ml/hr) and patient will be held for 30 min. observation.
[2023-01-11 13:04] VITALS: BP 126/86; PULSE 63; RESP 18; TEMP 36.8; O2SAT 99
== END ==
PROVIDERS: PCP Family Medicine; Referring Provider Family Medicine; Visit Provider Family Medicine
DX: K90.89 Other intestinal malabsorption (principal); R71.8 Other abnormality of red blood cells
CPT/HCPCS: 96365; 96366; J1756

== ENCOUNTER → 2023-07-03 15:00 | Outpatient (CLI) | payer OTHER, MEDICAID, SELFPAY ==
[2023-07-03 15:38] LABS: Add Manual Diff / Slide Review NO; Basophils Absolute Auto 0 /uL (0-100); Basophils Percent Auto 0.6 % (0-2); Eosinophils Absolute Auto 100 /uL (0-450); Eosinophils Percent Auto 1.7 % (2-4); Hematocrit 38.5 % (36-46); Hemoglobin 12.8 g/dL (12.0-16.0); Lymphocytes Absolute Auto 1200 /uL (1100-4500); Lymphocytes Percent Auto 20.6 % (25-40); Mean Corpuscular HGB Conc 33.4 % (30-36); Mean Corpuscular Hemoglobin 27.7 PG (26-34); Mean Corpuscular Volume 83.1 fL (80-100); Monocytes Absolute Auto 500 /uL (0-900); Monocytes Percent Auto 8.4 % (3-14); Neutrophils Absolute Auto 4100 /uL (1500-7000); Neutrophils Percent Auto 68.7 % (50-75); Platelet Count 223 X10^3/uL (150-400); Red Blood Cell Count 4.63 X10^6/uL (4.0-5.2); Red Cell Distribution Width 12.8 % (11.6-14.8)
[2023-07-03 16:06] LABS: HEMOLYSIS < 15 (0-50); Iron 147 ug/dL (37-170)
[2023-07-03 16:08] LABS: BUN Creatinine Ratio 13.6 (6-22); Blood Urea Nitrogen 8 mg/dL (7-17); Calcium 9.3 mg/dL (8.4-10.2); Carbon Dioxide 23 mmol/L (22-32); Chloride 107 mmol/L (98-107); Estimated Glomerular Filt Rate > 60 mL/min (>60); Glucose 86 mg/dL (70-100); HEMOLYSIS < 15 (0-50); Potassium 4.1 mmol/L (3.4-5.1); Sodium 138 mmol/L (137-145)
[2023-07-03 16:17] LABS: Percent Iron Saturation 46 % (15-50); Total Iron Binding Capacity 322 ug/dL (265-497); Transferrin 255 mg/dL (206-381)
[2023-07-03 16:42] LABS: Ferritin 26 ng/mL (6-137)
== END ==
PROVIDERS: PCP Family Medicine; Referring Provider Family Medicine; Visit Provider Family Medicine
DX: R71.8 Other abnormality of red blood cells (principal); D50.9 Iron deficiency anemia, unspecified; E28.2 Polycystic ovarian syndrome
CPT/HCPCS: 36415; 80048; 82728; 83540; 83550; 85025

== ENCOUNTER → 2023-07-18 15:44 | Outpatient (CLI) | payer OTHER, MEDICAID, SELFPAY ==
[2023-07-18 18:23] LABS: Add Manual Diff / Slide Review NO; Basophils Absolute Auto 0 /uL (0-100); Basophils Percent Auto 0.4 % (0-2); Eosinophils Absolute Auto 100 /uL (0-450); Eosinophils Percent Auto 1.5 % (2-4); Hemoglobin 13.2 g/dL (12.0-16.0); Lymphocytes Absolute Auto 1300 /uL (1100-4500); Lymphocytes Percent Auto 13.7 % (25-40); Mean Corpuscular HGB Conc 34.6 % (30-36); Mean Corpuscular Hemoglobin 30.4 PG (26-34); Mean Corpuscular Volume 87.9 fL (80-100); Monocytes Absolute Auto 600 /uL (0-900); Monocytes Percent Auto 6.5 % (3-14); Neutrophils Absolute Auto 7300 /uL (1500-7000); Neutrophils Percent Auto 77.9 % (50-75); Platelet Count 302 X10^3/uL (150-400); Red Blood Cell Count 4.33 X10^6/uL (4.0-5.2); White Blood Cell Count 9.4 X10^3/uL (4.5-11.0)
[2023-07-18 19:09] LABS: Follicle Stimulating Hormone 3.32 mIU/mL; Luteinizing Hormone 3.71 mIU/mL
[2023-07-18 19:11] LABS: Prolactin 14.4 ng/mL (3.0-18.6)
[2023-07-18 19:31] LABS: Ferritin 13 ng/mL (6-137)
== END ==
PROVIDERS: PCP Family Medicine; Referring Provider Obstetrics & Gynecology; Visit Provider Obstetrics & Gynecology
DX: R71.8 Other abnormality of red blood cells (principal); D64.9 Anemia, unspecified; E28.2 Polycystic ovarian syndrome
CPT/HCPCS: 36415; 82728; 83001; 83002; 84146; 84443; 85025

== ENCOUNTER → 2023-07-25 06:26 | Outpatient (CLI) | payer OTHER, MEDICAID, SELFPAY ==
--- NOTE | 2023-07-25 06:28 | DI.US.S_ITS ---
PROCEDURE: US PELVIC COMPLETE INDICATIONS: Evaluate for potential pelvic pathology TECHNIQUE: Real-time scanning was performed of the pelvic organs, with image documentation. Additional endovaginal scanning was necessary due to incomplete visualization of the adnexal and endometrial structures by transabdominal scanning. COMPARISON: [facility], US, US PELVIC COMPLETE, 10/08/2022, 9:20. FINDINGS: Uterus: Uterus is anteverted and normal in size at 9 x 5.7 x 5 cm. The myometrium is homogeneous. The endometrium measures 16 mm combined thickness. No fibroids. Ovaries: The right ovary measures 3.8 x 3.4 x 2.9 cm, with a calculated ovarian volume of 20 cc. The left ovary measures 3.1 x 2.8 x 2.8 cm, with a calculated ovarian volume of 12 cc. The ovaries have a normal sonographic appearance. Less than 12 follicles can be seen in each ovary. Hemorrhagic right ovarian cyst measuring 1.7 x 1.4 x 1.3 cm. Other: No pathologic free abdominal or pelvic fluid. IMPRESSION: 1. Right hemorrhagic cyst measuring 1.7 cm. 2. Endometrium measures 16 mm. We strive to produce accurate, complete, and clear reports of imaging services. To assist us in improving patient care, this report was composed using standard report templates and voice recognition software. Therefore, it may contain abnormal punctuation, insertions and/or omissions. Occasional wrong-word or sound-alike substitutions may occur. Though we review the report and make efforts to correct it, we do recommend that the report be read carefully in proper context to recognize any text inaccuracies. Dictated by: González Rubio M.D. on 07/25/2023 at 12:12 Approved by: González Rubio M.D. on 07/25/2023 at 12:17
== END ==
LOC: US 06:26
PROVIDERS: PCP Family Medicine; Referring Provider Obstetrics & Gynecology; Visit Provider Obstetrics & Gynecology
DX: N92.1 Excessive and frequent menstruation with irregular cycle (principal); E28.2 Polycystic ovarian syndrome
CPT/HCPCS: 76830; 76856; 93975

== ENCOUNTER → 2023-08-17 14:44 | Outpatient (CLI) | payer OTHER, MEDICAID, SELFPAY ==
[2023-08-17 17:59] LABS: Add Manual Diff / Slide Review NO; Basophils Absolute Auto 0 /uL (0-100); Basophils Percent Auto 0.6 % (0-2); Eosinophils Absolute Auto 100 /uL (0-450); Eosinophils Percent Auto 1.9 % (2-4); Hematocrit 37.8 % (36-46); Hemoglobin 12.8 g/dL (12.0-16.0); Lymphocytes Absolute Auto 1500 /uL (1100-4500); Lymphocytes Percent Auto 23.9 % (25-40); Mean Corpuscular HGB Conc 33.9 % (30-36); Mean Corpuscular Hemoglobin 28.8 PG (26-34); Mean Corpuscular Volume 84.9 fL (80-100); Monocytes Absolute Auto 400 /uL (0-900); Monocytes Percent Auto 7.2 % (3-14); Neutrophils Absolute Auto 4200 /uL (1500-7000); Neutrophils Percent Auto 66.4 % (50-75); Platelet Count 315 X10^3/uL (150-400); Red Blood Cell Count 4.45 X10^6/uL (4.0-5.2); Red Cell Distribution Width 13.2 % (11.6-14.8); White Blood Cell Count 6.3 X10^3/uL (4.5-11.0)
[2023-08-17 18:52] LABS: Ferritin 12 ng/mL (6-137)
== END ==
PROVIDERS: PCP Family Medicine; Referring Provider Family Medicine; Visit Provider Family Medicine
DX: G43.909 Migraine, unspecified, not intractable, without status migrainosus (principal); R79.0 Abnormal level of blood mineral
CPT/HCPCS: 36415; 82728; 85025

== ENCOUNTER → 2023-08-29 13:10 | Outpatient (CLI) | payer OTHER, MEDICAID, SELFPAY | LOC: LAB 13:11 | PROVIDERS: PCP Family Medicine; Referring Provider Obstetrics & Gynecology; Visit Provider Obstetrics & Gynecology | DX: N97.0 Female infertility associated with anovulation (principal) | CPT/HCPCS: 36415; 84144 ==

== ENCOUNTER → 2023-10-24 13:34 | Outpatient (CLI) | payer OTHER, MEDICAID, SELFPAY ==
[2023-10-24 15:17] LABS: Progesterone, Total 8.43 ng/mL
== END ==
PROVIDERS: PCP Family Medicine; Referring Provider Obstetrics & Gynecology; Visit Provider Obstetrics & Gynecology
DX: N97.0 Female infertility associated with anovulation (principal)
CPT/HCPCS: 36415; 84144

== ENCOUNTER → 2023-11-21 13:25 | Outpatient (CLI) | payer OTHER, MEDICAID, SELFPAY ==
[2023-11-21 14:17] LABS: Hematocrit 36.7 % (36-46); Hemoglobin 12.3 g/dL (12.0-16.0); Mean Corpuscular HGB Conc 33.5 % (30-36); Mean Corpuscular Hemoglobin 27.3 PG (26-34); Mean Corpuscular Volume 81.5 fL (80-100); Platelet Count 239 X10^3/uL (150-400); Red Cell Distribution Width 13.5 % (11.6-14.8); White Blood Cell Count 6.3 X10^3/uL (4.5-11.0)
[2023-11-21 15:23] LABS: Ferritin 10 ng/mL (6-137)
== END ==
PROVIDERS: PCP Family Medicine; Referring Provider Obstetrics & Gynecology; Visit Provider Obstetrics & Gynecology
DX: R71.8 Other abnormality of red blood cells (principal); G47.00 Insomnia, unspecified; N97.0 Female infertility associated with anovulation
CPT/HCPCS: 36415; 82728; 84144; 85027

== ENCOUNTER 2023-11-30 16:03 | Emergency (ER) | payer OTHER, MEDICAID, SELFPAY ==
[2023-11-30 16:18] VITALS: BP 151/96; PULSE 80; RESP 16; TEMP 36.4; O2SAT 99; BMI 36.0
--- NOTE | 2023-11-30 16:26 | ED.HA ---
HPI - Headache <Valerie Pereira PA-C - Last Filed: 11/30/23 19:07> General Chief Complaint: Headache Stated Complaint: Migraine, Vomiting Time Seen by Provider: 11/30/23 16:25 History of Present Illness HPI Narrative: 33-year-old woman with a history of migraines associated with menses presents with concern for migraine since 9:00 a.m. this morning. Patient states that she has not been using sumatriptan for her migraines recently as she does not like how it makes her feel. She did take a muscle relaxer this morning and take a nap she says this usually does help to relieve her symptoms but after sleeping she woke up and felt nauseous and still had a pretty bad migraine. She says this does feel like her normal migraines. She started her period yesterday and she has no concern for . She did also take Compazine at home to help with her nausea but states that she has vomited a couple of times due to her migraine symptoms since taking. She has otherwise been in her usual state of health but her states that he tested positive for COVID this morning and patient states she has a ?scratchy throat?. She describes her headache as global and has sensitivity to light. She states she also gets visual auras with her migraines but has not had this today. She denies numbness or tingling of her face or extremities, one-sided weakness or any other symptoms or concerns. Related Data Home Medications Medication Instructions Recorded Confirmed medroxyprogesterone 10 mg tablet 10 mg PO DAILY 11/16/23 11/16/23 Previous Rx's Medication Instructions Recorded cyclobenzaprine 5 mg tablet 5 mg PO Q8H PRN muscle 08/17/23 spasm/headaches #45 tabs ondansetron 4 mg disintegrating 4 mg PO DAILY #30 tabs 08/17/23 tablet phentermine 37.5 mg tablet 37.5 mg PO DAILY #30 tabs 11/16/23 qurarsoggn-fwvkkejtmlqor-lynldrlo 1 tab PO Q4-6H PRN pain 5 days #20 11/30/23 50 mg-325 mg-40 mg tablet tabs letrozole 2.5 mg tablet 5 mg (2 x 2.5 mg) PO Q24H 5 days 11/30/23 #10 tabs ondansetron 4 mg disintegrating 4 mg PO Q8H PRN nausea and 11/30/23 tablet vomiting 3 days #10 tabs Allergies Allergy/AdvReac Type Severity Reaction Status Date / Time codeine AdvReac Unknown Verified 11/16/23 13:57 narcotics AdvReac Unknown Uncoded 11/16/23 13:57 Review of Systems <Valerie Pereira PA-C - Last Filed: 11/30/23 19:07> Review of Systems Narrative: See HPI Patient History <Valerie Pereira PA-C - Last Filed: 11/30/23 19:07> Medical History PCOS (polycystic ovarian syndrome) Obesity (BMI 30-39.9) Microcytosis Migraine headache Sleep apnea Asthma Anxiety Seizure Fractures Chicken pox (~1993) Metrorrhagia Menorrhagia Surgical History Anesthesia History of cholecystectomy History of appendectomy Family History Father Hypertension Grandmother Uterine cancer Social History Smoking Status: Former smoker Smoking Status: Former smoker alcohol intake frequency: holidays/special occasions only Substance Use Type: does not use Exam <Valerie Pereira PA-C - Last Filed: 11/30/23 19:07> Narrative Exam Narrative: GENERAL: [33] year old patient appears stated age. Well-developed patient, in mild distress. HEAD: Atraumatic. Normocephalic. EYES: Pupils equal round and reactive 4 mm. Extraocular motions intact. No scleral icterus. No injection or drainage. Photosensitivity ENT: Nose without bleeding, purulent drainage. Throat without erythema, tonsillar hypertrophy or exudate. Airway patent. NECK: Trachea midline. Non tender CARDIOVASCULAR: Regular rate and rhythm without murmurs, gallops, or rubs. RESPIRATORY: Clear to auscultation. Breath sounds equal bilaterally. No wheezes, rales, or rhonchi. EXTREMITIES: No edema or joint tenderness. BACK: No neck tenderness normal active range of motion of the neck pain-free. Nontender without deformity or crepitance. No flank tenderness. NEURO: AOx3. Cranial nerves II-XII intact SKIN: No rash or erythema of visible areas Initial Vital Signs Initial Vital Signs: Vital Signs Temperature 97.6 F 11/30/23 16:18 Pulse Rate 80 11/30/23 16:18 Respiratory Rate 16 11/30/23 16:18 Blood Pressure 151/96 H 11/30/23 16:18 Pulse Oximetry 99 11/30/23 16:18 Oxygen Delivery Method Room Air 11/30/23 16:18 <Daniel Rinaldi DO - Last Filed: 12/01/23 07:04> Initial Vital Signs Initial Vital Signs: Vital Signs Temperature 97.6 F 11/30/23 16:18 Pulse Rate 80 11/30/23 16:18 Respiratory Rate 16 11/30/23 16:18 Blood Pressure 151/96 H 11/30/23 16:18 Pulse Oximetry 99 11/30/23 16:18 Oxygen Delivery Method Room Air 11/30/23 16:18 Course <Valerie Pereira PA-C - Last Filed: 11/30/23 19:07> Orders Ordered: Discontinued Medications Dexamethasone (Dexamethasone 10 Mg/Ml Vial) 10 mg IV NOW ONE Stop: 11/30/23 16:33 Last Admin: 11/30/23 17:13 Dose: 10 mg Documented By: JAYE Diphenhydramine HCl (Diphenhydramine 50 Mg/Ml Vial) 25 mg IV NOW ONE Stop: 11/30/23 16:33 Last Admin: 11/30/23 17:13 Dose: 25 mg Documented By: JAYE Sodium Chloride (Normal Saline 0.9%) 1,000 mls @ 1,000 mls/hr IV BOLUS ONE Stop: 11/30/23 17:31 Last Infusion: 11/30/23 18:15 Dose: Infused Documented By: Admin: 11/30/23 17:12 Dose: 1,000 mls/hr Documented By: JAYE Ketorolac Tromethamine (Ketorolac 30 Mg/Ml Vial) 30 mg IV NOW ONE Stop: 11/30/23 16:33 Last Admin: 11/30/23 17:12 Dose: 30 mg Documented By: JAYE Ondansetron HCl (Ondansetron 4 Mg/2 Ml Inj) 4 mg IV NOW ONE Stop: 11/30/23 16:34 Last Admin: 11/30/23 17:12 Dose: 4 mg Documented By: JAYE Vital Signs Vital signs: Vital Signs - 8 hr 11/30/23 16:18 11/30/23 18:52 Temperature 97.6 F Pulse Rate 80 74 Respiratory Rate 16 16 Blood Pressure 151/96 H 124/75 Pulse Oximetry 99 96 Oxygen Delivery Method Room Air Room Air <Daniel Rinaldi DO - Last Filed: 12/01/23 07:04> Orders Ordered: Discontinued Medications Dexamethasone (Dexamethasone 10 Mg/Ml Vial) 10 mg IV NOW ONE Stop: 11/30/23 16:33 Last Admin: 11/30/23 17:13 Dose: 10 mg Documented By: JAYE Diphenhydramine HCl (Diphenhydramine 50 Mg/Ml Vial) 25 mg IV NOW ONE Stop: 11/30/23 16:33 Last Admin: 11/30/23 17:13 Dose: 25 mg Documented By: JYAE Sodium Chloride (Normal Saline 0.9%) 1,000 mls @ 1,000 mls/hr IV BOLUS ONE Stop: 11/30/23 17:31 Last Infusion: 11/30/23 18:15 Dose: Infused Documented By: Admin: 11/30/23 17:12 Dose: 1,000 mls/hr Documented By: JAYE Ketorolac Tromethamine (Ketorolac 30 Mg/Ml Vial) 30 mg IV NOW ONE Stop: 11/30/23 16:33 Last Admin: 11/30/23 17:12 Dose: 30 mg Documented By: JAYE Ondansetron HCl (Ondansetron 4 Mg/2 Ml Inj) 4 mg IV NOW ONE Stop: 11/30/23 16:34 Last Admin: 11/30/23 17:12 Dose: 4 mg Documented By: JAYE Vital Signs Vital signs: Vital Signs - 8 hr 11/30/23 16:18 11/30/23 18:52 Temperature 97.6 F Pulse Rate 80 74 Respiratory Rate 16 16 Blood Pressure 151/96 H 124/75 Pulse Oximetry 99 96 Oxygen Delivery Method Room Air Room Air MDM - Headache <Valerie Pereira PA-C - Last Filed: 11/30/23 19:07> Differential Diagnosis Differential diagnosis: Likely migraine, tension headache and other (viral headache) Medical Records Attestation: I reviewed the patient's medical records. Lab Data Attestation: I reviewed the patient's lab results. Labs: Lab Results 11/30/23 Range/Units 17:10 SARS-CoV-2 (PCR) Negative (Negative) Influenza A (RT-PCR) Flu a negative (NEGATIVE) Influenza B (RT-PCR) Flu b negative (NEGATIVE) [facility] Narrative Medical decision making narrative: Is a 33-year-old woman with a history of migraines associated with menses with a migraine that began at 9:00 a.m. today consistent with her previous migraines unrelieved by a muscle relaxer and Compazine. Two episodes of vomiting prior to arrival. Patient's neuro exam is unremarkable she does have photophobia. Her tested positive for COVID this morning and she is tested for this today as well. This returns negative. Suspect that she may have it but simply be early on in the course and not testing positive yet. Her migraine is treated today with 1 L of NS IV, 10 mg dexamethasone as well as 30 mg of Toradol IV and 4 mg of Zofran. Her symptoms improved significantly and patient is comfortable going home to continue to rest. She states she has almost complete resolution of her head pain and significant improvement of her nausea. Prescription for Zofran and Fioricet. Patient has been declining to use her sumatriptan recently because she does not like how it makes her feel and is working with her primary care provider on determining other options. Return precautions provided, follow-up plan discussed, all questions answered. <Daniel Rinaldi, DO - Last Filed: 12/01/23 07:04> Lab Data Labs: Lab Results 11/30/23 Range/Units 17:10 SARS-CoV-2 (PCR) Negative (Negative) Influenza A (RT-PCR) Flu a negative (NEGATIVE) Influenza B (RT-PCR) Flu b negative (NEGATIVE) Discharge Plan Departure Patient Disposition: Home Clinical Impression: Migraine Qualifiers: Migraine type: unspecified Status migrainosus presence: without status migrainosus Intractability: not intractable Qualified Code(s): G43.909 - Migraine, unspecified, not intractable, without status migrainosus Instructions: DI for Migraine Activity Restrictions/Additional Instructions: *You have been diagnosed with [migraine] *What to do: *Please continue to take your regular medications as directed. [ 2] New medication prescriptions sent to your pharmacy: [Ondansetron, Fioricet] [ ] New medication written as a paper prescription [ ] No new medications given *Please follow up with your primary care provider in 2-3 days, call for an appointment. Let them know you were seen in the Emergency Department and that we ask that you be seen in follow up. We will electronically transmit a record of today's note if your PCP is in our system. We gave you a dose of steroid medication, some Toradol and antinausea medicine today in the emergency department as well as some fluids through her IV which seemed to improve your migraine symptoms quite a bit. We also tested you for COVID. This came back negative but because her is positive, it is certainly possible that it was just too early to get an accurate test so pay attention to your symptoms over the next few days and you can always retested home with a home test. I have prescribed Fioricet for you, as you state you have not been taking her sumatriptan. Hopefully this medication is helpful if needed for migraines. But I would definitely talk to your primary care provider/neurologist if you have 1 about next options for you. I also prescribed some antinausea medicine. Please do not take these more than as prescribed. *If you do not have a primary care provider please contact the [facility] Resource line at [phone]. They will ask some questions about your medical history and help get you set up with a doctor in the community. *Return to Emergency Department if you should have any new, worsening or concerning symptoms, such as [fever greater than 101 F, shaking chills, worsening pain, persistent vomiting or other bothersome symptoms] Prescriptions: New ntrlegwxni-jqvrniklttvts-wmqj 50-325-40 mg tablet 1 tab PO Q4-6H PRN (Reason: pain) 5 Days Qty: 20 0RF ondansetron 4 mg tablet,disintegrating 4 mg PO Q8H PRN (Reason: nausea and vomiting) 3 Days Qty: 10 0RF No Action letrozole 2.5 mg tablet 5 mg PO Q24H 5 Days Qty: 10 0RF Rx Instructions: begin between days 2 and 5 of mentrual cycle medroxyprogesterone 10 mg tablet 10 mg PO DAILY phentermine 37.5 mg tablet 37.5 mg PO DAILY Qty: 30 2RF Rx Instructions: must administer 30 minutes before or 1-2 hours after breakfast cyclobenzaprine 5 mg tablet 5 mg PO Q8H PRN (Reason: muscle spasm/headaches) Qty: 45 11RF ondansetron 4 mg tablet,disintegrating 4 mg PO DAILY Qty: 30 11RF Referrals: Manuel Newsome DO [Primary Care Provider] - Stand Alone Forms: Patient Portal/API ED Sign-out <Daniel Rinaldi DO - Last Filed: 12/01/23 07:04> Cosign ED Attending Cosignature Attestation: Dr Rinaldi Co-Sign Statement: I was available for consultation during this patient's emergency department visit. This chart is signed by myself for administrative purposes only. I did not have direct contact with this patient during this visit. They were seen independently by the APC.
[2023-11-30] MEDS: ONDANSETRON 4 MG/2 ML INJ IV (17:12)
[2023-11-30] MEDS: SODIUM CHLORIDE 0.9% 1,000 ML 1000 ML IV (17:12)
[2023-11-30] MEDS: KETOROLAC 30 MG/ML VIAL IV (17:12)
[2023-11-30] MEDS: DEXAMETHASONE 10 MG/ML VIAL IV (17:13)
[2023-11-30] MEDS: diphenhydrAMINE 50 MG/ML VIAL 25 MG IV (17:13)
[2023-11-30 17:52] LABS: Influenza A - CEPHEID Flu A NEGATIVE (NEGATIVE); Influenza B - CEPHEID Flu B NEGATIVE (NEGATIVE)
[2023-11-30 17:58] LABS: COVID-19 CEPHEID 4-PLEX PCR Negative (Negative)
[2023-11-30 18:52] VITALS: BP 124/75; PULSE 74; RESP 16; O2SAT 96
== END 2023-11-30 18:53 | disposition home or self-care (01) ==
PROVIDERS: Emergency Provider Student in an Organized Health Care Education/Training Program; PCP Family Medicine
DX: G43.909 Migraine, unspecified, not intractable, without status migrainosus (principal); Z11.52 Encounter for screening for COVID-19
CPT/HCPCS: 87635; 96361; 96374; 96375; 99283; 99284; J1100; J1200; J1885; J2405

== ENCOUNTER → 2023-12-18 14:26 | Outpatient (CLI) | payer OTHER, MEDICAID, SELFPAY | PROVIDERS: PCP Family Medicine; Referring Provider Obstetrics & Gynecology; Visit Provider Obstetrics & Gynecology | DX: N97.0 Female infertility associated with anovulation (principal) | CPT/HCPCS: 84144 ==

== ENCOUNTER → 2024-02-18 11:03 | Outpatient (CLI) | payer OTHER, MEDICAID, SELFPAY ==
[2024-02-18 11:51] LABS: Add Manual Diff / Slide Review NO; Basophils Absolute Auto 0 /uL (0-100); Basophils Percent Auto 0.4 % (0-2); Eosinophils Absolute Auto 100 /uL (0-450); Eosinophils Percent Auto 1.4 % (2-4); Hematocrit 34.9 % (36-46); Hemoglobin 11.6 g/dL (12.0-16.0); Lymphocytes Absolute Auto 1100 /uL (1100-4500); Lymphocytes Percent Auto 20.7 % (25-40); Mean Corpuscular HGB Conc 33.3 % (30-36); Mean Corpuscular Hemoglobin 26.7 PG (26-34); Mean Corpuscular Volume 80.2 fL (80-100); Monocytes Absolute Auto 500 /uL (0-900); Monocytes Percent Auto 8.5 % (3-14); Neutrophils Absolute Auto 3700 /uL (1500-7000); Platelet Count 243 X10^3/uL (150-400); Red Blood Cell Count 4.35 X10^6/uL (4.0-5.2); Red Cell Distribution Width 14.9 % (11.6-14.8); White Blood Cell Count 5.4 X10^3/uL (4.5-11.0)
[2024-02-19 19:45] LABS: Factor VIII Activity 93 % (56-140); von Willebrand Activity 68 % (50-200); von Willebrand Antigen 81 % (50-200)
== END ==
PROVIDERS: PCP Family Medicine; Referring Provider Obstetrics & Gynecology; Visit Provider Obstetrics & Gynecology
DX: N92.1 Excessive and frequent menstruation with irregular cycle (principal)
CPT/HCPCS: 36415; 85025; 85240; 85246

== ENCOUNTER → 2024-10-22 10:31 | Outpatient (CLI) | payer OTHER, SELFPAY ==
[2024-10-22 11:03] LABS: Hematocrit 32.2 % (36-46); Hemoglobin 10.3 g/dL (12.0-16.0); Mean Corpuscular HGB Conc 32.2 % (30-36); Mean Corpuscular Hemoglobin 23.5 PG (26-34); Mean Corpuscular Volume 73.0 fL (80-100); Platelet Count 306 X10^3/uL (150-400)
[2024-10-22 11:17] LABS: Alanine Aminotransferase 24 IU/L (<35); Albumin 4.3 g/dL (3.5-5.0); Albumin Globulin Ratio 1.4 (1.0-2.8); Alkaline Phosphatase 68 U/L (38-126); Blood Urea Nitrogen 9 mg/dL (7-17); Calcium 9.2 mg/dL (8.4-10.2); Carbon Dioxide 21 mmol/L (22-32); Chloride 108 mmol/L (98-107); Cholesterol 141 mg/dL (140-199); Estimated Glomerular Filt Rate > 60 mL/min (>60); Globulin 3.1 g/dL (1.7-4.1); Glucose 93 mg/dL (70-99); HDL Cholesterol 51 mg/dL (40-60); HEMOLYSIS < 15 (0-50); Potassium 4.4 mmol/L (3.4-5.1); Sodium 137 mmol/L (137-145); Total Protein 7.4 g/dL (6.3-8.2); Triglycerides 128 mg/dL (35-150)
[2024-10-22 12:03] LABS: HIV 1 & 2 Ab/Ag 4th Gen Combo NEGATIVE (NEGATIVE); Hep C Virus Ab w/Reflex Quant NEGATIVE s/c (NEGATIVE)
== END ==
PROVIDERS: PCP Family Medicine; Referring Provider Family Medicine; Visit Provider Family Medicine
DX: E66.01 Morbid (severe) obesity due to excess calories (principal); D64.9 Anemia, unspecified; G43.119 Migraine with aura, intractable, without status migrainosus
CPT/HCPCS: 36415; 80053; 80061; 85027; 86803; 87389

== ENCOUNTER → 2025-03-11 12:07 | Outpatient (ROUT) | payer OTHER, SELFPAY ==
[2025-03-11 12:39] LABS: HCG Quantitative /Beta subunit 10766 mIU/mL
== END ==
PROVIDERS: PCP Family Medicine; Visit Provider Advanced Practice Midwife
DX: N91.2 Amenorrhea, unspecified (principal)
CPT/HCPCS: 84702

== ENCOUNTER → 2025-03-13 13:42 | Outpatient (ROUT) | payer OTHER, SELFPAY ==
[2025-03-13 14:39] LABS: HCG Quantitative /Beta subunit 12885 mIU/mL
== END ==
PROVIDERS: PCP Family Medicine; Visit Provider Advanced Practice Midwife
DX: N91.2 Amenorrhea, unspecified (principal)
CPT/HCPCS: 84702

== ENCOUNTER → 2025-03-16 13:03 | Outpatient (CLI) | payer OTHER, SELFPAY ==
--- NOTE | 2025-03-16 13:04 | DI.US.S_ITS ---
PROCEDURE: US OB <= 14 WEEKS FETUS INDICATIONS: viability OUTSIDE/PRIOR DATING DATA: Last menstrual period (LMP): 01/10/2025 LMP-based estimated date of delivery (TAY): 10/26/2025. First dating scan (date and location): 03/13/2025. Estimated date of delivery (TAY) from first dating scan: 11/10/2025. TECHNIQUE: Real-time scanning was performed of the fetus and maternal pelvic organs, with image documentation. Endovaginal scanning was also performed to better visualize the fetus and maternal ovaries. COMPARISON: None. FINDINGS: Embryo: [place]-rump length measures 3 mm corresponding to 5 weeks 6 days. Yolk sac identified. Heart rate: No definitive cardiac motion Maternal organs: Ovaries within normal limits with left corpus luteal cyst.. IMPRESSION: Single IUP with crown-rump length of 3 mm corresponding to 5 weeks 6 days and no definitive discernible cardiac activity is seen. This is not diagnostic for early loss given small embryo size. Recommend clinical and imaging follow-up in 14 days or sooner. Dictated by: Ronnie Galarza [facility] Interpreted: Gomez Carmen MD on 03/16/2025 at 16:45 Transcribed by: JERRY on 03/16/2025 at 16:47 Approved by: Gomez Carmen M.D. on 03/17/2025 at 9:40
== END ==
LOC: US 13:03
PROVIDERS: PCP Family Medicine; Referring Provider Advanced Practice Midwife; Visit Provider Advanced Practice Midwife
DX: O36.80X0 Pregnancy with inconclusive fetal viability, not applicable or unspecified (principal)
CPT/HCPCS: 76801; 76817

== ENCOUNTER → 2025-03-24 14:55 | Outpatient (CLI) | payer OTHER, SELFPAY ==
--- NOTE | 2025-03-24 14:56 | DI.US.S_ITS ---
PROCEDURE: US PELVIC COMPLETE INDICATIONS: miscarraige 6 days ago, still bleeding TECHNIQUE: Real-time scanning was performed of the pelvic organs, with image documentation. Additional endovaginal scanning was necessary due to incomplete visualization of the adnexal and endometrial structures by transabdominal scanning. COMPARISON: [facility], US, US OB <= 14 WEEKS FETUS, 03/16/2025, 13:54. [facility], , US PELVIC COMPLETE, 07/25/2023, 6:40. FINDINGS: Uterus: Uterus is anteverted and normal in size at 9.2 x 6.8 x 5.4 cm. The myometrium is heterogeneous. The endometrium measures up to 13.1 mm combined thickness. Heterogeneous endometrium measuring approximately 5.8 millimeters along the fundal aspect, the mid and lower uterine segment and cervical canal is thickened at 13.1 millimeters with complex debris/clot. No vascularity is seen within the debris. Ovaries: The right ovary measures 2.8 x 3.0 x 1.6 cm, with a calculated ovarian volume of 7.3 cc. The left ovary measures 2.8 x 2.6 x 3.2 cm, with a calculated ovarian volume of 11.9 cc. The ovaries have a normal sonographic appearance. Greater than 12 follicles can be seen in the right ovary. No adnexal masses are seen. Other: No pathologic free abdominal or pelvic fluid. IMPRESSION: Thickened heterogeneous lower endometrium and cervical canal with complex debris concerning for retained products of conception versus blood clots. Right ovary demonstrates greater than 12 follicles, correlate for polycystic ovarian syndrome. We strive to produce accurate, complete, and clear reports of imaging services. To assist us in improving patient care, this report was composed using standard report templates and voice recognition software. Therefore, it may contain abnormal punctuation, insertions and/or omissions. Occasional wrong-word or sound-alike substitutions may occur. Though we review the report and make efforts to correct it, we do recommend that the report be read carefully in proper context to recognize any text inaccuracies. Dictated by: Aristeo Thrasher M.D. on 03/24/2025 at 16:00 Approved by: Aristeo Thrasher M.D. on 03/24/2025 at 16:05
[2025-03-24 16:31] LABS: Add Manual Diff / Slide Review NO; Hematocrit 27.6 % (36-46); Hemoglobin 8.9 g/dL (12.0-16.0); Lymphocytes Absolute Auto 1200 /uL (1100-4500); Mean Corpuscular HGB Conc 32.3 % (30-36); Mean Corpuscular Hemoglobin 22.1 PG (26-34); Mean Corpuscular Volume 68.3 fL (80-100); Platelet Count 305 X10^3/uL (150-400)
[2025-03-24 16:44] LABS: Microcytosis 1+
[2025-03-24 17:05] LABS: HEMOLYSIS < 15 (0-50); Iron 26 ug/dL (37-170)
[2025-03-24 17:17] LABS: Percent Iron Saturation 6 % (15-50); Total Iron Binding Capacity 433 ug/dL (265-497); Transferrin 362 mg/dL (206-381)
[2025-03-24 17:22] LABS: HCG Quantitative /Beta subunit 239.88 mIU/mL
[2025-03-24 17:44] LABS: Ferritin 4 ng/mL (6-137)
== END ==
LOC: US 14:56
PROVIDERS: PCP Family Medicine; Referring Provider Family Medicine; Visit Provider Physician Assistant
DX: O03.9 Complete or unspecified spontaneous abortion without complication (principal); R71.8 Other abnormality of red blood cells; E61.1 Iron deficiency; R93.89 Abnormal findings on diagnostic imaging of other specified body structures
CPT/HCPCS: 36415; 76856; 82728; 83540; 83550; 84702; 85025

== ENCOUNTER → 2025-04-01 10:49 | Outpatient (CLI) | payer OTHER, SELFPAY ==
[2025-04-01 11:16] LABS: Add Manual Diff / Slide Review NO; Hematocrit 28.4 % (36-46); Hemoglobin 9.0 g/dL (12.0-16.0); Lymphocytes Absolute Auto 1300 /uL (1100-4500); Mean Corpuscular HGB Conc 31.8 % (30-36); Mean Corpuscular Hemoglobin 21.5 PG (26-34); Mean Corpuscular Volume 67.7 fL (80-100); Platelet Count 334 X10^3/uL (150-400)
[2025-04-01 11:53] LABS: Anisocytosis 2+
[2025-04-01 13:43] LABS: HCG Quantitative /Beta subunit 15.53 mIU/mL
== END ==
PROVIDERS: PCP Family Medicine; Referring Provider Obstetrics & Gynecology; Visit Provider Obstetrics & Gynecology
DX: O03.4 Incomplete spontaneous abortion without complication (principal)
CPT/HCPCS: 36415; 84702; 85025

== ENCOUNTER → 2025-04-03 11:58 | Outpatient (CLI) | payer OTHER, SELFPAY ==
[2025-04-03 13:17] LABS: HCG Quantitative /Beta subunit 9.59 mIU/mL
== END ==
PROVIDERS: PCP Family Medicine; Referring Provider Family Medicine; Visit Provider Obstetrics & Gynecology
DX: O03.4 Incomplete spontaneous abortion without complication (principal)
CPT/HCPCS: 36415; 84702

== ENCOUNTER 2025-04-06 07:21 | Day surgery (SDC) | payer OTHER, SELFPAY ==
[2025-04-01 15:05] VITALS: BMI 41.0
[2025-04-06] VITALS (10 sets, daily range): BP systolic 105–163; BP diastolic 53–96; PULSE 68–94; RESP 12–20; TEMP 36.1–37.1; O2SAT 94–99
--- NOTE | 2025-04-06 | PATH_ITS ---
[facility] Accession Number: [id number] No. of containers..01 Tissue . 01 Material submitted: . product of conception - PRODUCTS OF CONCEPTION . 01 Diagnosis: PRODUCTS OF CONCEPTION: Negative for definite products of conception. Follow up imaging and/or laboratory studies are recommended to rule out an ectopic gestation. MRV 04/09/2025 1655 Local . 01 Comment: Dr. Heydi Blackman discussed results with Cinda Caba, triage nurse with Dr. Livia Galdamez' care team, 04/09/2025 at approximately 4:54 p.m. . 01 Electronically signed: . Heydi Blackman MD, Pathologist NPI- [id number] . 01 Gross description: . Received in formalin with two patient identifiers and products of conception, is a 3.5 x 3.0 x 1.2 cm aggregate of red/brown friable tissue fragments and admixed clotted blood. Definitive villous tissue and parts are not grossly identified. The specimen is entirely submitted in cassettes A1-A3. ([id number]) /CHITRA 04/07/20252055 Local . 01 Pathologist provided ICD-10: O03.4 . 01 CPT . 717147 Specimen Comment: A courtesy copy of this report has been sent to [facility] Performed at: [address] [address], [place], [place] [id number] MD Robert Bee MD Phone: [phone]
[2025-04-06] MEDS: FAMOTIDINE 20 MG/2 ML VIAL IV (08:11)
[2025-04-06] MEDS: APREPITANT 40 MG CAPSULE PO (08:11)
[2025-04-06] MEDS: LACTATED RINGERS 1,000 ML 42 ML IV ×2 (08:15→10:25)
--- NOTE | 2025-04-06 09:01 | PM.PREOP ---
Pre-operative Note COVID-19 COVID-19 status: Not tested Interval Note History & Physical reviewed/Exam performed by Physician: Yes Changes to H&P: No ASA Class (for procedural sedation): II
--- NOTE | 2025-04-06 09:41 | SUR.OPER ---
Lithotomy on padded OR bed, head on pillow, arms secured on padded arm boards at <90 degrees abduction. Legs secured in padded yellow fins stirrups. FINAL POSITIONING DONE BY PROVIDER
--- NOTE | 2025-04-06 09:59 | P.OP_ITS ---
Operative Date/Time/Diagnoses Date of procedure: 04/06/25 Time of procedure: 09:59 Pre-op diagnosis: Retained products of conception after miscarriage Post-op diagnosis: same Procedure & Clinicians Procedure: Procedures Operation Date: 04/06/25 08:45 Actual Procedure Side Surgeon p Hysteroscopy D&C with MyoSure, suction vi Estrella, Indications: Patient is a 35yo s/p spontaneous with retained products of conception noted on pelvic US. She attempted misoprostol with no passage of tissue and repeat US was concerning for a small amount of retained tissue at the fundus. considering that the US only showed possible minimal tissue and hcg dropping decision made to proceed with a hysteroscopy and removal of tissue with myosure device if small amount vs suction dilation and curettage if significant tissue present. Surgeon: Livia Estrella Anesthesia Type: General Operative Notes Findings: Hysteroscopic findings consistent with retained products, difficult visualization due to blood and cervical dilation but notable tissue present. Moderate amount of products of conception obtained with suction curette. Specimen(s): products of conception Applied: none Estimated blood loss (mL): 25 Blood products transfused: none Procedure in detail: The patient was taken to the operating room where she was properly prepped and draped in sterile manner under general anesthesia. After bimanual examination, the cervix was exposed with a single sided speculum and the cervix grasped with a tenaculum. The endocervical canal was already dilated enough to accomodate the myosure scope. The myosure hysteroscope was then introduced into the uterine cavity using sterile saline solution as a distending media and with attached video camera. The endometrial cavity was distended with fluids and the cavity v isualized. There was yellowish tissue present consistent with retained products of conception but visualization limited due to blood and poor distension. Once products of conception were confirmed the hysteroscope was removed and an 8mm suction curette was introduced. There was moderate tissue removed. to confirm no additional larger tissue present the cervix was dilated to accomodate at 10mm suction curette this was introduced and no additional tissue was obtained. This concluded the procedure. The patient tolerated the procedure well. The instruments were removed from the vaginal vault. The tenaculum site was hemostatic. The patient was sent to recovery area in satisfactory postoperative condition. IVF given-900ml EBL- 25ml Doxycycline 200mg PO x 1 dose not given prior to procedure, will be given in PACU prior to discharge Complications: none Post-operative Condition: stable Disposition: PACU Plan for aftercare: pelvic rest x 2 weeks
--- NOTE | 2025-04-06 10:53 | SUR.PHASEII ---
Spoke with PRUDENCE Knowles in OR #2. Informed of pt c/o pain, no acetaminophen in pre-op. See new order for Toradol and Acetaminophen.
[2025-04-06] MEDS: ONDANSETRON 4 MG/2 ML INJ IV (10:56)
[2025-04-06] MEDS: DOXYCYCLINE HYCLATE 100 MG TABLET 200 MG PO (10:56)
[2025-04-06] MEDS: KETOROLAC 30 MG/ML VIAL 15 MG IV (11:03)
[2025-04-06] MEDS: ACETAMINOPHEN IV 1,000 MG/100 ML VIAL 400 MG IV (11:06)
--- NOTE | 2025-04-06 12:07 | SUR.PHASEII ---
1120 Dr De La Vega in OR #1. Spoke with MD and received DC order and instructions.
== END 2025-04-06 11:32 | disposition home or self-care (01) ==
PROVIDERS: PCP Family Medicine; Referring Provider Family Medicine; Visit Provider Obstetrics & Gynecology
PROC: 0UDB8ZZ Extraction of Endometrium, Via Natural or Artificial Opening Endoscopic (ICD-10-PCS; CPT 58558; principal; 2025-04-06 08:45)
DX: O03.4 Incomplete spontaneous abortion without complication (principal); E66.9 Obesity, unspecified; Z68.41 Body mass index [BMI] 40.0-44.9, adult; Z90.49 Acquired absence of other specified parts of digestive tract
CPT/HCPCS: 59812; J0131; J1100; J1885; J2250; J2405; J2704; J3010; J7120; J8501

== ENCOUNTER → 2025-04-14 16:06 | Outpatient (CLI) | payer OTHER, SELFPAY | PROVIDERS: PCP Family Medicine; Referring Provider Family Medicine; Visit Provider Family Medicine | DX: R30.0 Dysuria (principal) | CPT/HCPCS: 87086 ==